=== PATIENT | male | born 1985 | race Caucasian/White ===

== ENCOUNTER 2020-01-05 19:36 | Emergency (ER) | payer OTHER ==
[~2020-01-05] VITALS: Ht 172.7 cm; Wt 128.4 kg
[2020-01-05 19:40] VITALS: BP 120/75
--- NOTE | 2020-01-05 19:43 | NUR ---
TO LOBBY A/W BED AMBULATORY
--- NOTE | 2020-01-05 19:55 | NUR ---
Pt ambulated to bed 8.
--- NOTE | 2020-01-05 20:00 | NUR ---
PT 34 Y/O MALE BIB SELF FOR C/O L SIDED CHEST PAIN X 2 WEEKS. CHEST PAIN RADIATING TO L ARM 7/10 CONTINOUS PAIN. "I FEEL PRESSURE ON MY CHEST." RESPIRATIONS ARE EVEN AND UNLABORED. LUNG SOUNDS CLEAR A/P BILAT. SKIN IS WARM AND DRY TO TOUCH. PT AAO X4. PT STATES PAIN IS PRESENT EVEN DURING REST. PT ON MONITOR. BED LOCKED AND IN LOWEST POSITION. MEDHX: NONE ALLERGIES: NKA
--- NOTE | 2020-01-05 20:43 | NUR ---
PT SITTING UPRGITH IN BED, BED LOW AND LOCKED AND 1 SIDERAIL UP. PT STATES HAS RIGHT SIDED CHEST/SHOULDER PAIN BUT STATES DOES NOT WANT ANYTHING FOR PAIN HE WANTS TO TALK TO THE DOCTOR FIRST. WILL CONTINUE TO MONITOR
--- NOTE | 2020-01-05 20:59 | NUR ---
LAB AT BEDSIDE.
--- NOTE | 2020-01-05 21:05 | NUR ---
RECIVED REPORT FROM ROHINI BELTRAN. CONTINUATION OF CARE.
--- NOTE | 2020-01-05 21:05 | NUR ---
Pt report given to DEVIN ADAMS. Transfer of care at this time.
[2020-01-05 21:27] LABS: ANION GAP 13.7 (8-16); BASOPHILS # (AUTO) 0.1 K/uL (0.00-0.22); BASOPHILS % (AUTO) 0.8 % (0.0-2.0); CARBON DIOXIDE 27.2 mmol/L (21-32); EOSINOPHILS # (AUTO) 0.1 K/uL (0-0.4); EOSINOPHILS % (AUTO) 0.8 % (0.0-4.0); HEMATOCRIT 44.4 % (36-52); HEMOGLOBIN 14.9 g/dL (12.0-18.0); LYMPHOCYTES # (AUTO) 3.2 K/uL (2.0-11.5); LYMPHOCYTES % (AUTO) 31.8 % (20.5-51.1); MEAN CORPUSCULAR HEMOGLOBIN 30 pg (27-31); MEAN CORPUSCULAR HGB CONC 33 g/dL (33-37); MEAN CORPUSCULAR VOLUME 88.6 fL (80-94); MONOCYTES # (AUTO) 0.8 K/uL (0.8-1.0); MONOCYTES % (AUTO) 7.9 % (1.7-9.3); NEUTROPHILS # (AUTO) 5.9 K/uL (1.8-7.7); NEUTROPHILS % (AUTO) 58.7 % (42.2-75.2); PLATELET COUNT (AUTO) 267 K/uL (140-450); POTASSIUM 3.9 mmol/L (3.5-5.1); RED BLOOD CELL COUNT(AUTO) 5.02 MIL/uL (4.20-6.10); RED CELL DISTRIBUTION WIDTH 13.1 % (11.6-13.7); WHITE BLOOD COUNT (AUTO) 10.1 K/uL (4.8-10.8)
[2020-01-05 21:33] LABS: ALBUMIN 3.7 g/dL (3.4-5.0); TOTAL BILIRUBIN 0.6 mg/dL (0.0-1.0)
--- NOTE | 2020-01-05 23:38 | NUR ---
PT RESTING IN BED WITH EYES CLOSED. RESP EVEN AND UNLABORED. VSS.
[2020-01-05 23:56] VITALS: BP 110/65
--- NOTE | 2020-01-05 23:57 | NUR ---
Patient discharged with v/s stable. Written and verbal after care instructions given and explained. Patient alert, oriented and verbalized understanding of instructions. Ambulatory with steady gait. All questions addressed prior to discharge. ID band removed. Patient advised to follow up with PMD. Opportunity to ask questions provided and answered.
== END 2020-01-05 23:57 | disposition home or self-care (01) ==
LOC: MED 19:36
DX: R07.89 Other chest pain (principal); R06.02 Shortness of breath
CPT/HCPCS: 36415; 71045; 80053; 83880; 84484; 85025; 85379; 93005; 99285; Q0092